=== PATIENT | female | born 1945 | race Caucasian/White ===

== ENCOUNTER 2024-02-21 05:35 | Day surgery (SDC) | payer OTHER ==
[~2024-02-21] VITALS: Ht 152.4 cm; Wt 81.6 kg
[2024-02-21] MEDS ORDERED: ACETAMINOPHEN 500 MG TABLET ONE (05:47)
[2024-02-21] MEDS ORDERED: CEFAZOLIN SOD 2 GM in D5W 50 ML IV ONE (07:00)
[2024-02-21] MEDS ORDERED: fentaNYL CITRATE/PF 100 MCG/2 ML AMP ONE (07:40)
[2024-02-21] MEDS ORDERED: HYDROmorphone 2 MG/ML VIAL ONE (07:40)
[2024-02-21] MEDS ORDERED: ACETAMINOPHEN I.V. 1000 MG 100 ML IV ONE (07:41)
[2024-02-21] MEDS ORDERED: MIDAZOLAM HCL 2 MG/2 ML VIAL (VERSED) ONE (07:41)
[2024-02-21] MEDS ORDERED: PROPOFOL 200MG/ 20ML VIAL (DIPRIVAN) IV ONE (07:45)
[2024-02-21] MEDS ORDERED: SEVOFLURANE 15 MIN GAS INH ONE (07:45)
[2024-02-21] MEDS ORDERED: SUGAMMADEX SODIUM 200 MG/2 ML VIAL IV ONE (07:45)
[2024-02-21] MEDS ORDERED: WATER FOR IRRIGATION,STERILE 1,000 ML IRRIG.SOLN IR ONE (07:45)
[2024-02-21] MEDS ORDERED: TRANEXAMIC ACID 1,000 MG/10 ML VIAL ONE (07:45)
[2024-02-21] MEDS ORDERED: ROCURONIUM BROMIDE 10 MG/ML (ZEMURON) ONE (07:45)
[2024-02-21] MEDS ORDERED: ONDANSETRON HCL 4 MG/2 ML VIAL ONE (07:45)
[2024-02-21] MEDS ORDERED: LR 1,000 ML IV.SOLN IV ONE (07:45)
[2024-02-21] MEDS ORDERED: NS IRRIG SOLN 1000 ML IR ONE (07:45)
[2024-02-21 08:13] VITALS: O2SAT 96
[2024-02-21] MEDS ORDERED: fentaNYL CITRATE/PF 100 MCG/2 ML AMP IVP PRN ×2 (08:15)
[2024-02-21] MEDS ORDERED: ONDANSETRON HCL 4 MG/2 ML VIAL IVP PRN (08:15)
[2024-02-21] MEDS ORDERED: LR 1,000 ML IV ONE (08:15)
[2024-02-21] MEDS ORDERED: BUPIVACAINE LIPOSOME/PF 266 MG/20 ML VIAL INFIL ONE (08:16)
[2024-02-21] MEDS ORDERED: D5/0.45 NS 1,000 ML IV SCH (09:00)
[2024-02-21] MEDS ORDERED: HYDROmorphone 1 MG/ML INJ. CARTRIDGE ONE (09:40)
[2024-02-21] MEDS: HYDROmorphone 1 MG/ML INJ. CARTRIDGE IVP PRN (09:40)
[2024-02-21] MEDS ORDERED: HYDROcodone/ACETAMIN 5-325 MG TAB (NORCO/ VICODIN) PO PRN ×2 (14:15)
[2024-02-21 14:22] VITALS: BP_SYST 106; PULSE 67; RESP 17
== END 2024-02-21 13:11 | disposition home or self-care (01) ==
LOC: SMU 05:35 → SDS 05:35
PROVIDERS: ATTEND Colon & Rectal Surgery
DX: K43.6 Other and unspecified ventral hernia with obstruction, without gangrene (principal); I12.9 Hypertensive chronic kidney disease with stage 1 through stage 4 chronic kidney disease, or unspecified chronic kidney disease; E11.22 Type 2 diabetes mellitus with diabetic chronic kidney disease; N18.2 Chronic kidney disease, stage 2 (mild); E66.01 Morbid (severe) obesity due to excess calories; K21.9 Gastro-esophageal reflux disease without esophagitis; J44.9 Chronic obstructive pulmonary disease, unspecified; F33.1 Major depressive disorder, recurrent, moderate; E03.9 Hypothyroidism, unspecified; E78.5 Hyperlipidemia, unspecified; Z96.651 Presence of right artificial knee joint; Z96.641 Presence of right artificial hip joint; Z98.890 Other specified postprocedural states; Z88.5 Allergy status to narcotic agent; Z79.890 Hormone replacement therapy; Z79.899 Other long term (current) drug therapy; Z68.35 Body mass index [BMI] 35.0-35.9, adult; Z80.9 Family history of malignant neoplasm, unspecified
CPT/HCPCS: 87081; 49594; 88305; J3490 ×2; J0690; J2250; J2405; J2704; J3010; J1171 ×2; J7060; J7120; C1781; J0131; C9290